=== PATIENT | female | born 2000 | race Caucasian/White ===

== ENCOUNTER 2022-01-08 13:23 | Emergency (ER) | payer OTHER ==
[~2022-01-08] VITALS: Ht 152.4 cm; Wt 47.3 kg
[2022-01-08] MEDS ORDERED: DOXY-354 PO (14:38)
[2022-01-08 14:40] VITALS: BP 139/79
== END 2022-01-08 14:55 | disposition home or self-care (01) ==
LOC: EMS 13:25
DX: N76.4 Abscess of vulva (principal)
CPT/HCPCS: 99283; Z7502